=== PATIENT | male | born 1985 | race Caucasian/White ===

== ENCOUNTER 2018-03-14 12:28 | Inpatient (IN) | payer MEDICAID ==
[~2018-03-14] VITALS: Ht 180.3 cm; Wt 95.0 kg
[~2018-03-14 12:28] MED LIST: LEVO25TA36 PO; LORT5TAB PO; PROM25SU8 PO
[2018-03-14 12:50] VITALS: BP 126/77; PULSE 87; RESP 22; TEMP 98.4; O2SAT 100
[2018-03-14 13:39] LABS: AUTOMATED NEUTROPHIL # 5.1 TH/MM3 (1.8-7.7); BASOPHIL # 0.3 TH/MM3 (0-0.2); BASOPHIL % 3.6 % (0.0-2.0); EOSINOPHIL # 0.4 TH/MM3 (0-0.4); EOSINOPHIL % 4.2 % (0.0-4.0); HEMATOCRIT 36.6 % (39.0-51.0); HEMOGLOBIN 12.4 GM/DL (13.0-17.0); LYMPH % 27.5 % (9.0-44.0); LYMPHOCYTE # 2.4 TH/MM3 (1.0-4.8); MEAN CELL VOLUME 89.9 FL (80.0-100.0); MEAN CORPUSCULAR HEMOGLOBIN 30.5 PG (27.0-34.0); MEAN PLATELET VOLUME 8.5 FL (7.0-11.0); MONO % 5.6 % (0.0-8.0); MONOCYTE # 0.5 TH/MM3 (0-0.9); NEUT % 59.1 % (16.0-70.0); PLATELET COUNT 193 TH/MM3 (150-450); RED BLOOD COUNT 4.08 MIL/MM3 (4.50-5.90); RED CELL DISTRIBUTION WIDTH 15.8 % (11.6-17.2); WHITE BLOOD COUNT 8.7 TH/MM3 (4.0-11.0)
[2018-03-14 14:06] LABS: BICARBONATE 27.8 MEQ/L (21.0-32.0); CALCIUM 7.8 MG/DL (8.5-10.1); CREATININE 1.94 MG/DL (0.60-1.30)
--- NOTE | 2018-03-14 14:31 | RADRPT ---
EXAM DATE/TIME: 03/14/2018 13:44 [place] COMPARISON: CHEST PA & LAT, July 27, 2009, 20:34. INDICATIONS : Short of breath. Lower extremity swelling. MEDICAL HISTORY : Hypothyroidism. SURGICAL HISTORY : None. ENCOUNTER: Initial ACUITY: 1 month PAIN SCORE: 0/10 LOCATION: Bilateral chest FINDINGS: PA and lateral views of the chest demonstrate the lungs to be symmetrically aerated without evidence of mass, infiltrate or effusion. The cardiomediastinal contours are unremarkable. Osseous structure s are intact. CONCLUSION: No acute disease. Clayton Townsend MD on March 14, 2018 at 14:28 Board Certified Radiologist. This report was verified electronically.
[2018-03-14 15:06] LABS: ALBUMIN 4.4 GM/DL (3.4-5.0); ALT (GPT) 25 U/L (12-78); AST (GOT) 42 U/L (15-37); DIRECT BILIRUBIN ADULT 0.1 MG/DL (0.0-0.2)
[2018-03-14 15:15] LABS: ALKALINE PHOSPHATASE 54 U/L (45-117); INDIRECT BILIRUBIN 0.2 MG/DL (0.0-0.8); TOTAL BILIRUBIN ADULT 0.3 MG/DL (0.2-1.0); TOTAL PROTEIN 8.3 GM/DL (6.4-8.2)
--- NOTE | 2018-03-14 15:28 | PD ---
HPI Chief Complaint: Edema Time Seen by Provider: 14:19 Travel History International Travel<30 days: No Contact w/Intl Traveler<30days: No Traveled to known affect area: No History of Present Illness HPI 32-year-old male presents to the emergency department with complaint of swelling to his entire body, including facial swelling and tongue swelling that is worsened over the past month. 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 He has not taken his medications since January 2017. His mom talked to her primary care provider and there is concern he has myxedema. He denies chest pain, abdominal pain. He is complaining of shortness of breath, but mainly at night when he lays down to go to sleep. Denies fever, vomiting. Reports fatigue. Denies headache, lightheadedness, dizziness. Denies change in mentation, confusion, disorientation, focal deficits or weakness. Says he has slurred speech because of his tongue being swollen. Otherwise his speech is normal. He does not have a primary care provider or multi needle machine operator. He says he has not been able to follow-up because he has no insurance. Allergies to Ceclor. History of congenital hypothyroidism and kidney stones. Has no other medical complaints. No other modifying factors or associated signs and symptoms. PFSH Past Medical History Diminished Hearing: No Thyroid Disease: Yes (HYPO) Past Surgical History Endocrine Surgery: Yes (THYROID REMOVED) Social History Alcohol Use: No ( ) Tobacco Use: Yes (3/4 PPD) Substance Use: Yes (MARIJUANA OCC) Allergies-Medications (Allergen,Severity, Reaction): Coded Allergies: cefaclor (Unverified Allergy, Severe, RASH, 06/19/17) Reported Meds & Prescriptions Reported Meds & Active Scripts Active Review of Systems Except as stated in HPI: all other systems reviewed are Neg Physical Exam Narrative GENERAL: Well-nourished, well-developed male patient, in no acute distress; afebrile, nontoxic-appearing SKIN: Warm and dry. No rash. HEAD: Atraumatic. Normocephalic. EYES: Pupils equal and round. No scleral icterus. No injection or drainage. ENT: Mucosa pink and moist. No erythema or exudates. No uvular edema. No uvular , palatal, or tonsillar deviation. Airway patent. EARS: Bilateral pinnae and external canals appear within normal limits. Bilateral tympanic membranes without erythema, dullness or perforation. MOUTH: Mucous membranes moist, no lesions, tongue and gums appear normal. Tongue edema noted. NECK: Trachea midline. No lymphadenopathy. CARDIOVASCULAR: Generalized edema to face, body, and all extremities. Regular rate and rhythm. No murmur appreciated. RESPIRATORY: No accessory muscle use. Clear to auscultation. Breath sounds equal bilaterally. No retractions or tachypnea. GASTROINTESTINAL: Abdomen soft, non-tender, nondistended. Hepatic and splenic margins not palpable. Bowel sounds are active 4 quadrants. MUSCULOSKELETAL: No obvious deformities. No clubbing. No cyanosis. No edema. NEUROLOGICAL: Awake and alert. Oriented 3. No obvious cranial nerve deficits. Motor grossly within normal limits. Normal speech. Moves all extremities. 5/5 strength to all extremities. PSYCHIATRIC: Appropriate mood and affect; insight and judgment normal. Data Data Last Documented VS Vital Signs Date Time Temp Pulse Resp B/P (MAP) Pulse Ox O2 Delivery O2 Flow Rate FiO2 03/14/18 15:53 71 19 131/63 (85) 94 Room Air 03/14/18 12:50 98.4 Orders Orders Complete Blood Count With Diff (03/14/18 12:54) Basic Metabolic Panel (Bmp) (03/14/18 12:54) Chest, Pa & Lat (03/14/18 12:54) Hepatic Functional Panel (03/14/18 14:38) Thyroid Stimulating Hormone (03/14/18 14:38) Diphenhydramine (Benadryl) (03/14/18 15:30) Methylprednisolone So Succ Inj (Solumedr (03/14/18 15:30) Levothyroxine Inj (Synthroid Inj) (03/14/18 16:30) Thyroid Stimulating Hormone (03/15/18 06:00) Free Thyroxine (T4) (03/15/18 06:00) Diet Regular Basic (03/14/18 Dinner) Consult Endocrinology (03/14/18 16:37) Place In Observation (03/14/18 ) Vital Signs (Adult) Q4H (03/14/18 17:06) Activity Oob With Assistance (03/14/18 17:06) Fagot Maker / Telemetry .CONTINUOUS (03/14/18 17:06) Intake + Output SHARITA.QSHIFT (03/14/18 17:06) Sodium Chloride 0.9% Flush (Ns Flush) (03/14/18 17:15) Sodium Chloride 0.9% Flush (Ns Flush) (03/14/18 21:00) Basic Metabolic Panel (Bmp) (03/15/18 06:00) Comprehensive Metabolic Panel (03/15/18 06:00) Enoxaparin Inj (Lovenox Inj) (03/14/18 18:00) Naloxone Inj (Narcan Inj) (03/14/18 17:15) Docusate Sodium-Senna (Nancy-Colace) (03/14/18 21:00) Magnesium Hydroxide Liq (Milk Of Magnesi (03/14/18 17:15) Sennosides (Senokot) (03/14/18 17:15) Bisacodyl Supp (Dulcolax Supp) (03/14/18 17:15) Lactulose Liq (Lactulose Liq) (03/14/18 17:15) Sodium Chlor 0.9% 1000 Ml Inj (Ns 1000 M (03/14/18 17:15) Free T3 (03/14/18 17:06) Free Thyroxine (T4) (03/14/18 17:06) Admit Order (Ed Use Only) (03/14/18 17:08) Labs Laboratory Tests Test 03/14/18 13:27 White Blood Count 8.7 TH/MM3 Red Blood Count 4.08 MIL/MM3 Hemoglobin 12.4 GM/DL Hematocrit 36.6 % Mean Corpuscular Volume 89.9 FL Mean Corpuscular Hemoglobin 30.5 PG Mean Corpuscular Hemoglobin Concent 34.0 % Red Cell Distribution Width 15.8 % Platelet Count 193 TH/MM3 Mean Platelet Volume 8.5 FL Neutrophils (%) (Auto) 59.1 % Lymphocytes (%) (Auto) 27.5 % Monocytes (%) (Auto) 5.6 % Eosinophils (%) (Auto) 4.2 % Basophils (%) (Auto) 3.6 % Neutrophils # (Auto) 5.1 TH/MM3 Lymphocytes # (Auto) 2.4 TH/MM3 Monocytes # (Auto) 0.5 TH/MM3 Eosinophils # (Auto) 0.4 TH/MM3 Basophils # (Auto) 0.3 TH/MM3 CBC Comment DIFF FINAL Differential Comment Blood Urea Nitrogen 17 MG/DL Creatinine 1.94 MG/DL Random Glucose 96 MG/DL Calcium Level 7.8 MG/DL Sodium Level 139 MEQ/L Potassium Level 3.6 MEQ/L Chloride Level 102 MEQ/L Carbon Dioxide Level 27.8 MEQ/L Anion Gap 9 MEQ/L Estimat Glomerular Filtration Rate 41 ML/MIN Total Bilirubin 0.3 MG/DL Direct Bilirubin 0.1 MG/DL Indirect Bilirubin 0.2 MG/DL Aspartate Amino Transf (AST/SGOT) 42 U/L Alanine Aminotransferase (ALT/SGPT) 25 U/L Alkaline Phosphatase 54 U/L Total Protein 8.3 GM/DL Albumin 4.4 GM/DL Thyroid Stimulating Hormone 3rd Gen GREATER THAN 100.000 uIU/ML MDM Medical Decision Making Medical Screen Exam Complete: Yes Emergency Medical Condition: Yes Medical Record Reviewed: Yes Differential Diagnosis Myxedema, hypothyroid, noncompliance Narrative Course 32-year-old male with history of thyroidectomy secondary to congenital hypothyroidism and has not taken his medication since January 2017 secondary to no insurance and unable to follow-up. Patient has generalized swelling to his face, tongue, body, extremities. He is in no acute distress. Oxygen saturation is 100% on room air. His symptoms have been worsening over the past month, including the tongue edema. CBC, CMP, chest x-ray, TSH ordered. 1524: TSH greater than 100.000. Call placed multi needle machine operator. Dr. Burgess evaluated the patient and recommended Benadryl and Solu-Medrol. Benadryl, Solu- Medrol ordered. 1630: I spoke with Dr. Garza, multi needle machine operator and he recommended 23 hour observation admission, 500 mcg IV levothyroxine, and repeat free T4 and TSH in the morning. Orders entered and consult ordered. Call out to ARMANI for patient admission. 1710: I spoke with ARMANI Morales and report given for patient admission. Physician Communication Physician Communication Dr. Garza, multi needle machine operator ARMANI Morales Diagnosis Primary Impression: Myxedema Admitting Information Admitting Physician Requests: Observation Sarah Perez SUPERVISOR PACKING ROOM March 14, 2018 15:28
[2018-03-14] MEDS ORDERED: diphenhydrAMINE HCL 25 MG CAP PO ONE (15:30)
[2018-03-14] MEDS ORDERED: methylPREDNISolone SOD SUCC 125 MG/2 ML VIAL IV PUSH ONE (15:30)
[2018-03-14 15:53] VITALS: BP 131/63; PULSE 71; RESP 19; O2SAT 94
--- NOTE | 2018-03-14 16:01 | PD ---
Data Data Last Documented VS Vital Signs Date Time Temp Pulse Resp B/P (MAP) Pulse Ox O2 Delivery O2 Flow Rate FiO2 03/14/18 15:53 71 19 131/63 (85) 94 Room Air 03/14/18 12:50 98.4 Orders Orders Complete Blood Count With Diff (03/14/18 12:54) Basic Metabolic Panel (Bmp) (03/14/18 12:54) Chest, Pa & Lat (03/14/18 12:54) Hepatic Functional Panel (03/14/18 14:38) Thyroid Stimulating Hormone (03/14/18 14:38) Diphenhydramine (Benadryl) (03/14/18 15:30) Methylprednisolone So Succ Inj (Solumedr (03/14/18 15:30) Labs Laboratory Tests Test 03/14/18 13:27 White Blood Count 8.7 TH/MM3 Red Blood Count 4.08 MIL/MM3 Hemoglobin 12.4 GM/DL Hematocrit 36.6 % Mean Corpuscular Volume 89.9 FL Mean Corpuscular Hemoglobin 30.5 PG Mean Corpuscular Hemoglobin Concent 34.0 % Red Cell Distribution Width 15.8 % Platelet Count 193 TH/MM3 Mean Platelet Volume 8.5 FL Neutrophils (%) (Auto) 59.1 % Lymphocytes (%) (Auto) 27.5 % Monocytes (%) (Auto) 5.6 % Eosinophils (%) (Auto) 4.2 % Basophils (%) (Auto) 3.6 % Neutrophils # (Auto) 5.1 TH/MM3 Lymphocytes # (Auto) 2.4 TH/MM3 Monocytes # (Auto) 0.5 TH/MM3 Eosinophils # (Auto) 0.4 TH/MM3 Basophils # (Auto) 0.3 TH/MM3 CBC Comment DIFF FINAL Differential Comment Blood Urea Nitrogen 17 MG/DL Creatinine 1.94 MG/DL Random Glucose 96 MG/DL Calcium Level 7.8 MG/DL Sodium Level 139 MEQ/L Potassium Level 3.6 MEQ/L Chloride Level 102 MEQ/L Carbon Dioxide Level 27.8 MEQ/L Anion Gap 9 MEQ/L Estimat Glomerular Filtration Rate 41 ML/MIN Total Bilirubin 0.3 MG/DL Direct Bilirubin 0.1 MG/DL Indirect Bilirubin 0.2 MG/DL Aspartate Amino Transf (AST/SGOT) 42 U/L Alanine Aminotransferase (ALT/SGPT) 25 U/L Alkaline Phosphatase 54 U/L Total Protein 8.3 GM/DL Albumin 4.4 GM/DL Thyroid Stimulating Hormone 3rd Gen GREATER THAN 100.000 uIU/ML MDM Supervised Visit with [facility]: Yes Narrative Course I, Dr. Burgess, have reviewed the advance practice practitioner's documentation and am in agreement, met with the patient face to face, made the diagnosis, and the medical decision making was done by me. *My assessment and Findings: I examined the patient. He does have anasarca- like picture. He has thickened tongue and garbled voice. This is chronic over a month but worsening. His TSH was extremely high. He has been off his Synthroid for a long time and has history of congenital hypothyroidism. He has some myxedema-like findings. Given the swelling near the airway he will be hospitalized. RAIMUNDO Smith will discuss with currency examiner and get this patient admitted. Sorin Burgess MD March 14, 2018 16:01
[2018-03-14] MEDS ORDERED: LEVOTHYROXINE SODIUM 100 MCG VIAL IV ONE (16:30)
[2018-03-14] MEDS ORDERED: LACTULOSE SYRUP 20 GM/30 ML CUP PO PRN (17:15)
[2018-03-14] MEDS ORDERED: MAGNESIUM HYDROXIDE SUSP 30 ML CUP PO PRN (17:15)
[2018-03-14] MEDS ORDERED: SENNOSIDES 8.6 MG TAB PO PRN (17:15)
[2018-03-14] MEDS ORDERED: BISACODYL 10 MG SUPP RECTAL PRN (17:15)
[2018-03-14] MEDS ORDERED: NALOXONE HCL 0.4 MG/ML AMP IV PUSH PRN (17:15)
[2018-03-14] MEDS ORDERED: SODIUM CHLORIDE 0.9% FLUSH 10 ML FLUSH IV FLUSH PRN (17:15)
[2018-03-14] MEDS: ENOXAPARIN SODIUM 30 MG/0.3 ML SYRINGE SQ SCH (19:01)
--- NOTE | 2018-03-14 20:04 | HHI.HP ---
[facility] Service [facility] Primary Care Physician Unknown Admission Diagnosis myxedema Diagnoses: Chief Complaint: throat swelling Travel History International Travel<30 Days: No Contact w/Intl Traveler <30 Da: No Traveled to Known Affected Are: No History of Present Illness 32 y/o male with a history of congenital hypothyroidism presented to the ED with swelling of his tongue and face. He states the swelling has been going on since the end of January. He has not been taking his levothyroxine for over a year due to insurance issues. He states he has been having trough swallowing due to the swelling. Denies any chest pain, sob confusion, mental changes or weakness. He does not have a PCP. Review of Systems Except as stated in HPI: all other systems reviewed are Neg Past Family Social History Past Medical History congenital hypothyroidism Past Surgical History Thyroidectomy Reported Medications Reported Meds & Active Scripts Active Allergies: Coded Allergies: cefaclor (Unverified Allergy, Severe, RASH, 06/19/17) Active Ordered Medications Current Medications Medications (Trade) Dose Ordered Sig/Humberto Route Start Time Stop Time Status Last Admin (NS Flush) 2 ml UNSCH PRN IV FLUSH 03/14/18 17:15 (NS Flush) 2 ml BID IV FLUSH 03/14/18 21:00 (Lovenox Inj) 30 mg Q24H SQ 03/14/18 18:00 03/14/18 19:01 (Narcan Inj) 0.4 mg UNSCH PRN IV PUSH 03/14/18 17:15 (Nancy-Colace) 1 tab BID PO 03/14/18 21:00 (Milk Of Magnesia Liq) 30 ml Q12H PRN PO 03/14/18 17:15 (Senokot) 17.2 mg Q12H PRN PO 03/14/18 17:15 (Dulcolax Supp) 10 mg DAILY PRN RECTAL 03/14/18 17:15 (Lactulose Liq) 30 ml DAILY PRN PO 03/14/18 17:15 Sodium Chloride 1,000 ml @ 100 mls/hr Q10H IV 03/14/18 17:15 Family History Patient denies any family history Social History Tobacco use: 3/4 PPd Alcohol use: Physical Exam Vital Signs Vital Signs Date Time Temp Pulse Resp B/P (MAP) Pulse Ox O2 Delivery O2 Flow Rate FiO2 03/14/18 15:53 71 19 131/63 (85) 94 Room Air 03/14/18 12:50 98.4 87 22 126/77 (93) 100 Physical Exam GENERAL: This is a well-nourished, well-developed patient, in no apparent distress. SKIN: No rashes, ecchymoses or lesions. Cool and dry. EYES: Pupils equal round and reactive. ENT: Nose without bleeding, purulent drainage or septal hematoma.Throat with mild edema. Airway patent. CARDIOVASCULAR: Regular rate and rhythm without murmurs, gallops, or rubs. RESPIRATORY: Clear to auscultation. Breath sounds equal bilaterally. No wheezes , rales, or rhonchi. GASTROINTESTINAL: Abdomen soft, non-tender, nondistended. MUSCULOSKELETAL: Extremities without clubbing, cyanosis, or edema. No calf tenderness. NEUROLOGICAL: Awake and alert. Motor and sensory grossly within normal limits. Five out of 5 muscle strength in all muscle groups. slurred speech due swelling. Laboratory Laboratory Tests Test 03/14/18 13:27 White Blood Count 8.7 Red Blood Count 4.08 Hemoglobin 12.4 Hematocrit 36.6 Mean Corpuscular Volume 89.9 Mean Corpuscular Hemoglobin 30.5 Mean Corpuscular Hemoglobin Concent 34.0 Red Cell Distribution Width 15.8 Platelet Count 193 Mean Platelet Volume 8.5 Neutrophils (%) (Auto) 59.1 Lymphocytes (%) (Auto) 27.5 Monocytes (%) (Auto) 5.6 Eosinophils (%) (Auto) 4.2 Basophils (%) (Auto) 3.6 Neutrophils # (Auto) 5.1 Lymphocytes # (Auto) 2.4 Monocytes # (Auto) 0.5 Eosinophils # (Auto) 0.4 Basophils # (Auto) 0.3 CBC Comment DIFF FINAL Differential Comment Blood Urea Nitrogen 17 Creatinine 1.94 Random Glucose 96 Calcium Level 7.8 Sodium Level 139 Potassium Level 3.6 Chloride Level 102 Carbon Dioxide Level 27.8 Anion Gap 9 Estimat Glomerular Filtration Rate 41 Total Bilirubin 0.3 Direct Bilirubin 0.1 Indirect Bilirubin 0.2 Aspartate Amino Transf (AST/SGOT) 42 Alanine Aminotransferase (ALT/SGPT) 25 Alkaline Phosphatase 54 Total Protein 8.3 Albumin 4.4 Thyroid Stimulating Hormone 3rd Gen GREATER THAN 100.000 Result Diagram: 03/14/18 1327 03/14/18 1327 Imaging Last Impressions Chest X-Ray 03/14/18 1254 Signed Impressions: Service Date/Time: March 13:44 - CONCLUSION: No acute disease. MD Ravi Barrios VTE Risk Assessment Caprinradha VTE Risk Assessment: No/Low Risk (score <= 1) Caprini Risk Assessment Model Point Value = 1 Point Value = 2 Point Value = 3 Point Value = 5 Age 41-60 Minor surgery BMI > 25 kg/m2 Swollen legs Varicose veins or History of unexplained or recurrent spontaneous Oral contraceptives or hormone replacement Sepsis (< 1 month) Serious lung disease, including pneumonia (< 1 month) Abnormal pulmonary function Acute myocardial infarction Congestive heart failure (< 1 month) History of inflammatory bowel disease Medical patient at bed rest Age 61-74 Arthroscopic surgery Major open surgery (> 45 min) Laparoscopic surgery (> 45 min) Malignancy Confined to bed (> 72 hours) Immobilizing plaster cast Central venous access Age >= 75 History of VTE Family history of VTE Factor V Leiden Prothrombin [id number] Lupus anticoagulant Anticardiolipin antibodies Elevated serum homocysteine Heparin-induced thrombocytopenia Other congenital or acquired thrombophilia Stroke (< 1 month) Elective arthroplasty Hip, pelvis, or leg fracture Acute spinal cord injury (< 1 month) Prophylaxis Regimen Total Risk Factor Score Risk Level Prophylaxis Regimen 0-1 Low Early ambulation 2 Moderate Order ONE of the following: *Sequential Compression Device (SCD) *Heparin 5000 units SQ BID 3-4 Higher Order ONE of the following medications: *Heparin 5000 units SQ TID *Enoxaparin/Lovenox 40 mg SQ daily (WT < 150 kg, CrCl > 30 mL/min) *Enoxaparin/Lovenox 30 mg SQ daily (WT < 150 kg, CrCl > 10-29 mL/min) *Enoxaparin/Lovenox 30 mg SQ BID (WT < 150 kg, CrCl > 30 mL/min) AND/OR *Sequential Compression Device (SCD) 5 or more Highest Order ONE of the following medications: *Heparin 5000 units SQ TID (Preferred with Epidurals) *Enoxaparin/Lovenox 40 mg SQ daily (WT < 150 kg, CrCl > 30 mL/min) *Enoxaparin/Lovenox 30 mg SQ daily (WT < 150 kg, CrCl > 10-29 mL/min) *Enoxaparin/Lovenox 30 mg SQ BID (WT < 150 kg, CrCl > 30 mL/min) AND *Sequential Compression Device (SCD) Assessment and Plan Assessment and Plan 32 y/o male with a history of congenital hypothyroidism presented to the ED with swelling of his tongue and face. Severe hypothyroidism, acute TSH >100 -500mcg IV Synthroid given in ED -Consult endocrine for recommendations -TSH and T4 in AM -IVF for hydration DVT prophylaxis: SCDs, lovenox Discussed Condition With Patient and RN Cindy Santillan March 14, 2018 20:04
[2018-03-14] MEDS: SODIUM CHLOR 0.9% 1000 ML INJ 1,000 ML IV SCH (20:15)
[2018-03-14] MEDS: SODIUM CHLORIDE 0.9% FLUSH 10 ML FLUSH IV FLUSH SCH (21:00)
[2018-03-14 21:31] VITALS: BP 92/58; PULSE 85; RESP 16; TEMP 97.6; O2SAT 94
[2018-03-14 21:50] LABS: FREE T3 0.75 PG/ML (2.18-3.98); FREE T4 0.14 NG/DL (0.76-1.46)
[2018-03-14] MEDS: DOCUSATE SODIUM 50 MG/SENNA 8.6 MG TAB PO SCH (21:54)
[2018-03-15 00:44] VITALS: BP 103/58; PULSE 80; RESP 16; TEMP 97.5; O2SAT 95
[2018-03-15] MEDS: SODIUM CHLOR 0.9% 1000 ML INJ 1,000 ML IV SCH ×2 (03:15→19:26)
[2018-03-15 04:26] VITALS: BP 102/69; PULSE 80; RESP 16; TEMP 97.4; O2SAT 95
[2018-03-15 05:34] LABS: ALBUMIN 3.8 GM/DL (3.4-5.0); BICARBONATE 29.2 MEQ/L (21.0-32.0); CALCIUM 7.4 MG/DL (8.5-10.1); CREATININE 1.67 MG/DL (0.60-1.30)
[2018-03-15 05:43] LABS: FREE T4 0.43 NG/DL (0.76-1.46); TOTAL BILIRUBIN ADULT 0.4 MG/DL (0.2-1.0); TOTAL PROTEIN 7.7 GM/DL (6.4-8.2)
[2018-03-15 05:54] LABS: CALCIUM-PROTEIN CORRECTED 7.2 MG/DL (8.5-10.1)
[2018-03-15] MEDS ORDERED: CALCIUM GLUCONATE INJ 1 GM in DEXTROSE 5% IN WATER 100ML INJ 100 ML IV ONE ×2 (07:00)
[2018-03-15 07:06] VITALS: BP 120/79; PULSE 76; RESP 18; TEMP 97.4; O2SAT 96
[2018-03-15] MEDS: DOCUSATE SODIUM 50 MG/SENNA 8.6 MG TAB PO SCH (08:59)
[2018-03-15] MEDS: SODIUM CHLORIDE 0.9% FLUSH 10 ML FLUSH IV FLUSH SCH ×2 (09:00→21:00)
--- NOTE | 2018-03-15 09:18 | HHI.PR ---
Subjective Remarks Follow-up myxedema March 15, 2018-patient seen and examined, denies any shortness of breath, chest pain, dizziness. Patient has been noncompliant with medical care. Waiting for endocrinology Objective Vitals Vital Signs Date Time Temp Pulse Resp B/P (MAP) Pulse Ox O2 Delivery O2 Flow Rate FiO2 03/15/18 07:06 97.4 76 18 120/79 (93) 96 03/15/18 04:26 97.4 80 16 102/69 (80) 95 03/15/18 00:44 97.5 80 16 103/58 (73) 95 03/14/18 21:31 97.6 85 16 92/58 (69) 94 03/14/18 15:53 71 19 131/63 (85) 94 Room Air 03/14/18 12:50 98.4 87 22 126/77 (93) 100 I/O 03/14/18 03/14/18 03/14/18 03/15/18 03/15/18 03/15/18 07:00 15:00 23:00 07:00 15:00 23:00 Intake Total 360 ml Output Total 340 ml Balance 20 ml Intake Oral 360 ml Output Urine Total 340 ml # Voids 1 Result Diagram: 03/14/18 1327 03/15/18 0451 Imaging Last Impressions Chest X-Ray 03/14/18 1254 Signed Impressions: Service Date/Time: March 13:44 - CONCLUSION: No acute disease. Clayton Townsend MD Objective Remarks GENERAL: NAD SKIN: Warm and dry. HEAD: Normocephalic. EYES: No scleral icterus. No injection or drainage. NECK: Supple, trachea midline. No JVD or lymphadenopathy. CARDIOVASCULAR: Regular rate and rhythm without murmurs, gallops, or rubs. RESPIRATORY: Breath sounds equal bilaterally. No accessory muscle use. GASTROINTESTINAL: Abdomen soft, non-tender, nondistended. MUSCULOSKELETAL: No cyanosis, or edema. BACK: Nontender without obvious deformity. No CVA tenderness. A/P Problem List: (1) Myxedema ICD Code: E03.9 - Hypothyroidism, unspecified Status: Acute Assessment and Plan 32-year-old man with Severe hypothyroidism, acute TSH >100 -500mcg IV Synthroid given in ED -Endocrine consult pending for recommendations -IVF for hydration Hypocalcemia Will give calcium gluconate 1 g IV for total 2 g DVT prophylaxis: SCDs, lovenox Will change to inpatient admit Juan Mckenzie MD March 15, 2018 09:18
[2018-03-15] MEDS ORDERED: INFLUENZA VIRUS VACCINE (QUADRIVALENT) 0.5 ML SYR IM ONE (10:00)
[2018-03-15] MEDS ORDERED: CALCIUM GLUCONATE INJ 1 GM in SODIUM CHLORIDE 0.9% INJ 100 ML IV ONE (11:00)
[2018-03-15 11:04] VITALS: BP 114/73; PULSE 63; RESP 18; TEMP 97.3; O2SAT 96
--- NOTE | 2018-03-15 15:51 | PD.CONS ---
History of Present Illness Service Endocrinology Consult Requested By Dr. 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 He reports to have been off of his thyroid medication for the last at least one year due to financial reasons. Per his report this is the about 4th time he has allowed himself to be this hypothyroid in his life. He has come to the ER for evaluation. After phone discussion I had requested a 500 mcg IV Levothyroxine bolus which has brought his TSH in one day from over 100 to now 75 earlier today. His Free T4 is still very low albeit better and he has tolerated this well. Otherwise on questioning he admits to cold intolerance, slow mentation, swelling of his tongue, dry skin, weight gain and intermittent constipation. He has a longstanding history of mild depression for which he has not been on any medication. The patient is the 3rd of 4 children none of whom seem to have thyroid disease. His mother is camping with hyperthyroidism at this point in time. Review of Systems Except as stated in HPI: all other systems reviewed are Neg Past Family Social History Allergies: Coded Allergies: cefaclor (Unverified Allergy, Severe, RASH, 06/19/17) Past Medical History Hypothyroidism and renal stones Past Surgical History Thyroidectomy at the age of 20 Active Ordered Medications Active Medications Bisacodyl (Dulcolax Supp) 10 mg DAILY PRN RECTAL; Start 03/14/18 at 17:15; Stop 03/15/18 at 09:18; Status DC Calcium Gluconate 1 gm/Dextrose 110 ml @ 110 mls/hr ONCE ONCE IV Last administered on 03/15/18at 09:00; Admin Dose 110 MLS/HR; Start 03/15/18 at 07:00 ; Stop 03/15/18 at 07:59; Status DC Calcium Gluconate 1 gm/Sodium Chloride 110 ml @ 110 mls/hr ONCE ONCE IV Last administered on 03/15/18at 12:40; Admin Dose 110 MLS/HR; Start 03/15/18 at 11:00 ; Stop 03/15/18 at 11:59; Status DC Enoxaparin Sodium (Lovenox Inj) 30 mg Q24H SQ Last administered on 03/14/18at 19: 01; Admin Dose 30 MG; Start 03/14/18 at 18:00 Influenza Virus Vaccine (Flu (Quadrivalent) Vaccine Inj) 0.5 ml ONCE ONCE IM; Start 03/15/18 at 10:00; Stop 03/15/18 at 10:01; Status DC Lactulose (Lactulose Liq) 30 ml DAILY PRN PO; Start 03/14/18 at 17:15; Stop 09/22 at 09:18; Status DC Levothyroxine Sodium (Synthroid Inj) 500 mcg ONCE ONCE IV Last administered on 03/14/18at 18:43; Admin Dose 500 MCG; Start 03/14/18 at 16:30; Stop 03/14/18 at 16:34; Status DC Magnesium Hydroxide (Milk Of Magnesia Liq) 30 ml Q12H PRN PO; Start 03/14/18 at 17:15 Naloxone HCl (Narcan Inj) 0.4 mg UNSCH PRN IV PUSH; Start 03/14/18 at 17:15 Senna/Docusate Sodium (Nancy-Colace) 1 tab BID PO Last administered on 03/14/18at 21:54; Admin Dose 1 TAB; Start 03/14/18 at 21:00; Stop 03/15/18 at 09:18; Status DC Sennosides (Senokot) 17.2 mg Q12H PRN PO; Start 03/14/18 at 17:15; Stop at 09:18; Status DC Sodium Chloride 1,000 ml @ 100 mls/hr Q10H IV Last administered on 03/15/18at 03 :15; Admin Dose 100 MLS/HR; Start 03/14/18 at 17:15 Sodium Chloride (NS Flush) 2 ml BID IV FLUSH Last administered on 03/15/18at 09: 00; Admin Dose 2 ML; Start 03/14/18 at 21:00 Sodium Chloride (NS Flush) 2 ml UNSCH PRN IV FLUSH; Start 03/14/18 at 17:15 Family History He is the 3rd of 4 children and has 2 older brothers and one younger sister. His 2nd brother has Down syndrome whilst his mother has hyperthyroidism Social History The patient is single and lives with his girlfriend/Fiancee. 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 He has been smoking 1/3 pack of cigarettes per day. Physical Exam Vital Signs Vital Signs Date Time Temp Pulse Resp B/P (MAP) Pulse Ox O2 Delivery O2 Flow Rate FiO2 03/15/18 11:04 97.3 63 18 114/73 (87) 96 03/15/18 07:06 97.4 76 18 120/79 (93) 96 03/15/18 04:26 97.4 80 16 102/69 (80) 95 03/15/18 00:44 97.5 80 16 103/58 (73) 95 03/14/18 21:31 97.6 85 16 92/58 (69) 94 03/14/18 15:53 71 19 131/63 (85) 94 Room Air Physical Exam GENERAL: This is a well-nourished, well-developed patient, in no apparent distress. SKIN: VERY DRY SKIN HEAD: Atraumatic. Normocephalic. No temporal or scalp tenderness. EYES: Pupils equal round. Extraocular motions intact. No scleral icterus. No injection or drainage. ENT: Nose without bleeding, purulent drainage. airway patent. NECK: Trachea midline. No JVD or lymphadenopathy. Supple, nontender, no meningeal signs. CARDIOVASCULAR: Regular rate and rhythm without murmurs, gallops, or rubs. RESPIRATORY: Clear to auscultation. Breath sounds equal bilaterally. No wheezes , rales, or rhonchi. GASTROINTESTINAL: Abdomen soft, non-tender, nondistended. No hepato-splenomegaly , or palpable masses. No guarding. MUSCULOSKELETAL: Extremities without clubbing, cyanosis, or edema. No joint tenderness, effusion, or edema noted. NEUROLOGICAL: Awake and alert. Cranial nerves II through XII intact. Motor and sensory grossly within normal limits. Laboratory Laboratory Tests Test 03/15/18 04:51 Blood Urea Nitrogen 16 Creatinine 1.67 Random Glucose 127 Total Protein 7.7 Albumin 3.8 Calcium Level 7.4 Alkaline Phosphatase 51 Aspartate Amino Transf (AST/SGOT) 35 Alanine Aminotransferase (ALT/SGPT) 20 Total Bilirubin 0.4 Sodium Level 141 Potassium Level 3.8 Chloride Level 103 Carbon Dioxide Level 29.2 Anion Gap 9 Estimat Glomerular Filtration Rate 48 Protein Corrected Calcium 7.2 Free Thyroxine 0.43 Thyroid Stimulating Hormone 3rd Gen 76.300 Result Diagram: 03/14/18 1327 03/15/18 0451 Assessment and Plan Assessment and Plan Congenital Hypothyroidism Hx of renal stones Hx of thyroidectomy Hx of nonadherence to medical therapy due to financial issues The patient is now biochemically improved. He has tolerated his dose well and has had some improvement in his blood work. At this point seen his age and lack of cardiovascular issues I will recommend another bolus of 500 mcg of Levothyroxine and to start 400 mcg PO QD x 3 days followed by 200 mcg a day. Currently his absorption may not be the best. From Endocrine perspective O.K. to discharge patient after he has had his 500 mcg of Levothyroxine. Recommend to check his blood-work in 10 days and follow in 2 weeks. Thank you for the opportunity to participate in the management of this very interesting gentleman. Kaden Viveros MD March 15, 2018 15:51
[2018-03-15] MEDS ORDERED: LEVO200T4 PO (15:56)
[2018-03-15] MEDS ORDERED: LEVOTHYROXINE SODIUM 100 MCG VIAL IV PUSH ONE (18:00)
[2018-03-15 19:00] VITALS: BP 133/76; PULSE 75; RESP 20; TEMP 97.5; O2SAT 100
[2018-03-15] MEDS: ENOXAPARIN SODIUM 30 MG/0.3 ML SYRINGE SQ SCH (19:26)
[2018-03-15 20:25] VITALS: BP 117/74; PULSE 85; RESP 16; TEMP 98; O2SAT 96
[2018-03-15] MEDS ORDERED: NICOTINE 14 MG/24 HR PATCH T-DERMAL ONE (21:00)
[2018-03-16 00:12] VITALS: BP 109/60; PULSE 80; RESP 16; TEMP 97.7; O2SAT 96
[2018-03-16] MEDS: SODIUM CHLOR 0.9% 1000 ML INJ 1,000 ML IV SCH ×2 (02:28→11:32)
[2018-03-16 04:33] VITALS: BP 128/65; PULSE 93; RESP 16; TEMP 97.6; O2SAT 95
[2018-03-16 08:04] VITALS: BP 103/71; PULSE 85; RESP 18; TEMP 98.1; O2SAT 97
[2018-03-16] MEDS ORDERED: LEVOTHYROXINE SODIUM 200 MCG TAB PO STA (08:13)
[2018-03-16] MEDS ORDERED: LEVO200T4 PO (08:15)
--- NOTE | 2018-03-16 08:16 | HHI.DCPOC ---
Discharge Care Plan Diagnosis: (1) Hypothyroid (2) Myxedema Your Health Problems Are: Difficulty with ADL Appetite Changes Weight Gain Goals to Promote Your Health * To prevent worsening of your condition and complications * To maintain your health at the optimal level Directions to Meet Your Goals Take your medications as prescribed Follow your dietary instruction Follow activity as directed Keep your appointments as scheduled Take your immunizations and boosters as scheduled If your symptoms worsen call your PCP, if no PCP go to Urgent Care Center or Emergency Room Smoking is Dangerous to Your Health. Avoid second hand smoke Call the 24-hour hour crisis hotline for domestic abuse at [facility] March 16, 2018 08:16
--- NOTE | 2018-03-16 08:26 | HHI.PR ---
Subjective Remarks Follow-up myxedema March 15, 2018-patient seen and examined, denies any shortness of breath, chest pain, dizziness. Patient has been noncompliant with medical care. Waiting for endocrinology March 16, 2018-patient seen and examined, reported improvement of symptoms of shortness of breath. Denies any dizziness. Was seen by endocrinology last night. No acute event overnight Objective Vitals Vital Signs Date Time Temp Pulse Resp B/P (MAP) Pulse Ox O2 Delivery O2 Flow Rate FiO2 03/16/18 08:04 98.1 85 18 103/71 (82) 97 03/16/18 04:33 97.6 93 16 128/65 (86) 95 03/16/18 00:12 97.7 80 16 109/60 (76) 96 03/15/18 20:25 98.0 85 16 117/74 (88) 96 03/15/18 19:00 97.5 75 20 133/76 (95) 100 03/15/18 11:04 97.3 63 18 114/73 (87) 96 I/O 03/15/18 03/15/18 03/15/18 03/16/18 03/16/18 03/16/18 07:00 15:00 23:00 07:00 15:00 23:00 Intake Total 360 ml 950 ml Output Total 340 ml Balance 20 ml 950 ml Intake Oral 360 ml IV Total 950 ml Output Urine Total 340 ml # Voids 1 3 Result Diagram: 03/14/18 1327 03/15/18 0451 Imaging Last Impressions Chest X-Ray 03/14/18 1254 Signed Impressions: Service Date/Time: March 13:44 - CONCLUSION: No acute disease. Clayton Townsend MD Objective Remarks GENERAL: NAD SKIN: Warm and dry. HEAD: Normocephalic. EYES: No scleral icterus. No injection or drainage. NECK: Supple, trachea midline. No JVD or lymphadenopathy. CARDIOVASCULAR: Regular rate and rhythm without murmurs, gallops, or rubs. RESPIRATORY: Breath sounds equal bilaterally. No accessory muscle use. GASTROINTESTINAL: Abdomen soft, non-tender, nondistended. MUSCULOSKELETAL: No cyanosis, or edema. BACK: Nontender without obvious deformity. No CVA tenderness. Procedures None A/P Problem List: (1) Myxedema ICD Code: E03.9 - Hypothyroidism, unspecified Status: Acute (2) Hypocalcemia ICD Code: E83.51 - Hypocalcemia (3) Hypothyroid ICD Code: E03.9 - Hypothyroidism, unspecified Assessment and Plan 32-year-old man with Severe hypothyroidism, acute TSH >100 -500mcg IV x2 Synthroid given since admission -Start Synthroid 400 mcg daily 2 days then 200 mcg daily -Appreciate input from endocrinology and recommend repeat lab work TSH free T4 in 10 days -d/c IVF for hydration Hypocalcemia Treated with calcium gluconate 1 g IV for total 2 g; Lab pending this AM DVT prophylaxis: SCDs, lovenox Problem Qualifiers (1) Hypothyroid: Qualified Codes: E03.0 - Congenital hypothyroidism with diffuse goiter Juan Mckenzie MD March 16, 2018 08:26
--- NOTE | 2018-03-16 08:29 | HHI.DS ---
Discharge Summary Admission Date March 14, 2018 at 17:11 Discharge Date: March 16, 2018 Admitting Diagnosis myxedema (1) Myxedema ICD Code: E03.9 - Hypothyroidism, unspecified Status: Acute (2) Hypocalcemia ICD Code: E83.51 - Hypocalcemia (3) Hypothyroid ICD Code: E03.9 - Hypothyroidism, unspecified Procedures None Brief History - From Admission 32 y/o male with a history of congenital hypothyroidism presented to the ED with swelling of his tongue and face. He states the swelling has been going on since the end of January. He has not been taking his levothyroxine for over a year due to insurance issues. He states he has been having trough swallowing due to the swelling. Denies any chest pain, sob confusion, mental changes or weakness. He does not have a PCP. CBC/BMP: 03/14/18 1327 03/15/18 0451 Significant Findings Laboratory Tests Test 03/14/18 13:27 03/15/18 04:51 03/16/18 07:43 Red Blood Count 4.08 MIL/MM3 (4.50-5.90) Hemoglobin 12.4 GM/DL (13.0-17.0) Hematocrit 36.6 % (39.0-51.0) Eosinophils (%) (Auto) 4.2 % (0.0-4.0) Basophils (%) (Auto) 3.6 % (0.0-2.0) Basophils # (Auto) 0.3 TH/MM3 (0-0.2) Creatinine 1.94 MG/DL (0.60-1.30) 1.67 MG/DL (0.60-1.30) Calcium Level 7.8 MG/DL (8.5-10.1) 7.4 MG/DL (8.5-10.1) Estimat Glomerular Filtration Rate 41 ML/MIN (>89) 48 ML/MIN (>89) Aspartate Amino Transf (AST/SGOT) 42 U/L (15-37) Total Protein 8.3 GM/DL (6.4-8.2) Free Thyroxine 0.14 NG/DL (0.76-1.46) 0.43 NG/DL (0.76-1.46) Free Triiodothyronine (T3) pg/dL 0.75 PG/ML (2.18-3.98) Thyroid Stimulating Hormone 3rd Gen GREATER THAN 100.000 uIU/ML 76.300 uIU/ML (0.358-3.740) Random Glucose 127 MG/DL (74-106) Protein Corrected Calcium 7.2 MG/DL (8.5-10.1) Imaging Last Impressions Chest X-Ray 03/14/18 1254 Signed Impressions: Service Date/Time: March 13:44 - CONCLUSION: No acute disease. Clayton Townsend MD PE at Discharge GENERAL: NAD SKIN: Warm and dry. HEAD: Normocephalic. EYES: No scleral icterus. No injection or drainage. NECK: Supple, trachea midline. No JVD or lymphadenopathy. CARDIOVASCULAR: Regular rate and rhythm without murmurs, gallops, or rubs. RESPIRATORY: Breath sounds equal bilaterally. No accessory muscle use. GASTROINTESTINAL: Abdomen soft, non-tender, nondistended. MUSCULOSKELETAL: No cyanosis, or edema. BACK: Nontender without obvious deformity. No CVA tenderness. Hospital Course while in the hospital, patient was treated for: Severe hypothyroidism, acute TSH >100 -500mcg IV x2 Synthroid given since admission -Start Synthroid 400 mcg daily 2 days then 200 mcg daily -Appreciate input from endocrinology and recommend repeat lab work TSH free T4 in 10 days Hypocalcemia Treated with calcium gluconate 1 g IV for total 2 g DVT prophylaxis: SCDs, lovenox Pt Condition on Discharge: Good Discharge Disposition: Discharge Home Discharge Time: <= 30 minutes Discharge Instructions DIET: Follow Instructions for: As Tolerated, No Restrictions Activities you can perform: Regular-No Restrictions Follow [facility] Follow-up - 2-3 Days New Medications: PENDING: Levothyroxine (Levothyroxine) 200 Mcg Tab 200 MCG PO DAILY for Thyroid, #30 TAB 0 Refills Levothyroxine (Levothyroxine) 200 Mcg Tab 400 MCG PO DAILY for Thyroid, #2 TAB 0 Refills Juan Mckenzie MD March 16, 2018 08:29
[2018-03-16] MEDS ORDERED: REMOVE OLD PATCH T-DERMAL ONE (09:00)
[2018-03-16 09:15] LABS: BICARBONATE 28.1 MEQ/L (21.0-32.0); CALCIUM 7.2 MG/DL (8.5-10.1); CREATININE 1.83 MG/DL (0.60-1.30)
[2018-03-16 09:33] LABS: TOTAL PROTEIN 7.2 GM/DL (6.4-8.2)
[2018-03-16 09:44] LABS: CALCIUM-PROTEIN CORRECTED 7.2 MG/DL (8.5-10.1)
[2018-03-16] MEDS ORDERED: CALC500 PO (10:43)
[2018-03-16] MEDS: SODIUM CHLORIDE 0.9% FLUSH 10 ML FLUSH IV FLUSH SCH (11:32)
[2018-03-16] MEDS ORDERED: CALCIUM GLUCONATE INJ 2 GM in DEXTROSE 5% IN WATER 100ML INJ 100 ML IV ONE ×2 (12:00)
[2018-03-16 12:46] VITALS: BP 101/66; PULSE 68; RESP 18; TEMP 98.4; O2SAT 96
[2018-03-16] MEDS ORDERED: CALCIUM CARBONATE 1.25 GM (CA 500 MG) TAB PO SCH (21:00)
[2018-03-18] MEDS ORDERED: LEVO200T4 PO (15:27)
== END 2018-03-16 16:14 | disposition home or self-care (01) | DRG 645 ==
LOC: NEPD 12:28 → NEDA 17:10 → UNDOADMOB 17:11 → NEDA 17:11 → NEPFCDU 19:17 → NEDA 19:17 → OBSVTOIN 03-15 15:23 → UNDODISOB 03-16 16:14
PROVIDERS: ADMIT Hospitalist; ATTEND Hospitalist
DX: E03.0 Congenital hypothyroidism with diffuse goiter (principal); E83.51 Hypocalcemia; R60.9 Edema, unspecified; R06.02 Shortness of breath; K59.00 Constipation, unspecified; F17.210 Nicotine dependence, cigarettes, uncomplicated; F12.90 Cannabis use, unspecified, uncomplicated; Z87.442 Personal history of urinary calculi; Z59.9 Problem related to housing and economic circumstances, unspecified; Z91.19 Patient's noncompliance with other medical treatment and regimen; Z23 Encounter for immunization
CPT/HCPCS: 71046; 80048; 80053; 80076; 84155; 84439; 84443; 84481; 85025; 96361; 96365; 96366; 96372; 96375; 96376; G0378; J0610; J1650; J2930; J7030